=== PATIENT | male | born 2000 | race Caucasian/White ===

== ENCOUNTER 2025-05-26 09:21 | Emergency (ER) | payer OTHER ==
[~2025-05-26] VITALS: Ht 177.8 cm; Wt 134.1 kg
[2025-05-26 09:42] LABS: BASOPHILS 1.2 % (0.2-1.2); EOSINOPHILS 13.4 % (0.8-7.0); LYMPHOCYTES 38.9 % (21.8-53.1); MCH 28.8 PG (25.7-32.2); MCHC 34.6 g/dL (32.3-36.5); MCV 83.1 fL (79.0-92.2); MONOCYTES 6.5 % (5.3-12.2); NEUTROPHILS 39.8 % (34.0-67.9); RBC 6.11 M/uL (4.63-6.08)
[2025-05-26] MEDS ORDERED: ALBUTEROL/IPRATROPIUM 3 ML NEB INH ONE (09:45)
[2025-05-26] MEDS ORDERED: SODIUM CHLORIDE 0.9% 2,000 ML IV PRN (09:45)
[2025-05-26] MEDS ORDERED: AZITHROMYCIN 500 MG in DEXTROSE 5% 250 ML IV ONE (09:45)
[2025-05-26] MEDS ORDERED: ALBUTEROL SULFATE 0.5% 2.5 MG/0.5 ML VIAL INH ONE (10:00)
[2025-05-26 10:01] LABS: ALT (SGPT) 59.0 U/L (14-59); AST (SGOT) 28.0 U/L (15-37); GLOMERULAR FILTRATION RATE,EST 119.0 mL/min (>60); PROTEIN, TOTAL 8.7 g/dL (6.4-8.2); UREA NITROGEN 9.0 mg/dL (7-18)
[2025-05-26 10:04] LABS: LACTIC ACID, BLOOD 1.2 mmol/L (0.4-2.0)
[2025-05-26] MEDS ORDERED: VENTOLIN HFA18 GM (10:12)
[2025-05-26 11:34] LABS: BLOOD/HGB, URINE TRACE-I (Negative); KETONE, URINE SMALL (Negative); LEUK ESTERASE, URINE NEGATIVE (negative); NITRITE, URINE NEGATIVE (negative)
[2025-05-26 11:39] LABS: BACTERIA, URINE RARE /hpf (negative); CASTS, URINE NONE SEEN \\lpf; CRYSTALS, URINE NONE SEEN (0-1+); EPITHELIAL CELLS, URINE 0 /lpf (0-1+); REFLEX CULTURE, URINE No (No)
[2025-05-26] MEDS ORDERED: VENTOLIN HFA18 GM INH (13:48)
[2025-05-26] MEDS ORDERED: AMOX TR-K CLV1 EAC1 PO (13:48)
[2025-05-26] MEDS ORDERED: ZITHROMAX250 MG PO (13:48)
[2025-05-26] MEDS ORDERED: PREDNISONE20 MG PO (13:48)
[2025-05-26 14:00] VITALS: BP 152/83
== END 2025-05-26 14:04 | disposition home or self-care (01) ==
LOC: ED 09:21
PROVIDERS: Emergency Medicine
DX: J45.901 Unspecified asthma with (acute) exacerbation (principal); Z79.899 Other long term (current) drug therapy
CPT/HCPCS: 36415; 71045; 80053; 81001; 83605; 85025; 85060; 87040; 87077; 94640; 94667; 96365; 96367; 96375; 99285-25; J0456; J0696; J2919; J7060